=== PATIENT | female | born 1975 | race Caucasian/White ===

== ENCOUNTER 2022-09-07 17:00 | Outpatient (RCR) | payer SELFPAY ==
--- NOTE | 2022-07-07 11:51 | HP.PTEVAL ---
Patient's Visit Information DANIEL COULTER is a 47 year old F referred to Physical Therapy by TRISH IBARRA with a diagnosis of L shoulder arthroscopy. Date of Evaluation: 07/07/22 Physical Therapist: Jose Armando Carolina, PT, ATC - Visit Plan Frequency: 2-3x /Week Duration: 1 Week Plan: Pt to follow up in 2-4 weeks. Issued and instructed pt on phase 1 and 2 shoulder ex's. - Subjective DOS: 07/02/22. Pt reports she had a partial tear of her L labrum and a bone spur repair at that time. Pt reports she is still in a lot of pain today. Pt reports she is very limited with her IADL's at this time. Pt reports getting dressed and putting on her deoderant is very difficult at this time secondary to pain. Pt notes she also has sleep difficutly at this time secondary to pain. Pt is R hand dominant. No tingling or numbness in L UE at this time. 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 Pt reports her pain is 3/10 while sitting at rest, 4/10 at worst. - Pain L shoulder pain Pain Intensity (Out of 10): 3 Pain Intensity Range: 4 - Objective Neuro: B UE sensation is WNL to light touch. B bicipital reflex= 2/3. Observation: Incisions are still covered. No signs of infection. ROM: R shoulder flex= 165, abd= 145, ER= 90, IR= WNL; L shoulder flex= 40, abd= 40, ER= 35, IR= severely limited. MMT: R shoulder flex= 11, abd= 20, ER= 16, IR= 16 #F; L shoulder flex= 0, abd= 0, ER= 0, IR= 0 #F - Balance/Special Test Scores Quick DASH Score: 61.3625 - Goals Goal 1:: I with HEP in 2-3 visits Goal Time Frame: 4-6 Weeks - Rehabilitation Potential Physical Therapy Diagnosis: Pt has L shoulder pain, weakness, and limited ROM secondary to L shoulder arthroscopy Rehabilitation Potential: Good - Anticipated Interventions Patient/Client Instruction: Educate patient on: Condition, Plan of Care For the Purpose of:: To improve self management Therapeutic Exercise to Include: Strength training, Endurance training, Flexibilty training, Passive ROM, Active ROM, Scapular Strength/Stabilization For the Purpose of:: To decrease pain, To increase ROM, To improve muscle performance and motor function Cryotherapy (ice pack, ice massage): Yes For the Purpose of:: To decrease pain Thank you for the opportunity to evaluate your patient. For Medicare and Medicare HMO plans, please review the plan of care and approve it. It will need to be FAXED BACK to us at [phone] for Medicare purposes. For Medicare only, by signing this I certify the plan of care. Please let me know if there are questions or concerns regarding this plan of care. Physician Signature: Date:
== END 2022-09-07 19:00 | disposition home or self-care (01) ==
LOC: PT 17:00
PROVIDERS: PCP Family Medicine
DX: M65.812 Other synovitis and tenosynovitis, left shoulder (principal); M75.02 Adhesive capsulitis of left shoulder; S43.432A Superior glenoid labrum lesion of left shoulder, initial encounter
CPT/HCPCS: 97110; 97140; 97161; 97164